=== PATIENT | female | born 1985 | race Caucasian/White ===

== ENCOUNTER → 2020-04-10 | Outpatient (CLI) | payer BC, OTHER ==
--- NOTE | 2020-04-10 12:47 | Diagnostic Imaging Report ---
INDICATION: survey. TECHNIQUE: Multiple real-time grayscale images were obtained over the gravid uterus. COMPARISON: None FINDINGS: There is a single live fetus in a cephalic presentation. heart rate was recorded 144 bpm. Placenta is posterior. Amniotic fluid volume appears normal. Cervical length is 3.8 cm. The kidneys, bladder and stomach are unremarkable. brain is unremarkable. There is a four-chamber heart. There is a three-vessel cord with normal insertion. spine is unremarkable. Biometrical measurements are as follows: Biparietal 4.93 cm, age 21 weeks 0 days. Head circumference 18.23 cm, age 20 weeks 5 days. Abdominal circumference 14.33 cm, age 19 weeks 5 days. Femur length 3.49 cm, age 21 weeks 1 days. Sonographic estimate age: 20 weeks 5 days. Sonographic estimated date of delivery: 08/23/2020. Estimated Weight: 348 gm (+/- 51 gm). LMP percentile: 26%. heart rate: 144 beats per minute. number: 1 of 1. IMPRESSION: Single live IUP 20 weeks 5 days gestational age. Estimated date of confinement sonographically is 08/23/2020. Dictated by: Dictated on workstation # [id number]
== END ==
LOC: RAD 10:00
PROVIDERS: ATTEND Obstetrics & Gynecology
DX: Z34.92 Encounter for supervision of normal pregnancy, unspecified, second trimester (principal); Z3A.20 20 weeks gestation of pregnancy
CPT/HCPCS: 76805

== ENCOUNTER 2020-08-27 02:24 | Inpatient (IN) | payer OTHER ==
[2020-08-27] VITALS (43 sets, daily range): BP systolic 99–140; BP diastolic 54–87
[~2020-08-27] VITALS: Ht 172.7 cm; Wt 81.1 kg
[2020-08-27] MEDS ORDERED: D5 LR IV SOLUTION 1,000 ML IV ONE (02:36)
[2020-08-27] MEDS ORDERED: LACTATED RINGERS 1,000 ML IV ONE ×2 (02:36→04:15)
[2020-08-27] MEDS ORDERED: D5 LR IV SOLUTION 1,000 ML IV SCH (03:00)
[2020-08-27] MEDS ORDERED: fentaNYL 2 mcg/ml BUPIVA 0.125 100 ML ONE (03:05)
[2020-08-27] MEDS ORDERED: ONDANSETRON 4 MG/2 ML (SDV) Z0FRAN ONE (03:05)
[2020-08-27] MEDS ORDERED: HYDROmorphone 2 MG/ML VIAL (DILAUDID) ONE (03:05)
[2020-08-27] MEDS ORDERED: HYDROmorphone 2 MG/ML VIAL (DILAUDID) IVP ONE (03:15)
[2020-08-27] MEDS ORDERED: ONDANSETRON 4 MG/2 ML (SDV) Z0FRAN IVP ONE ×2 (03:15→04:15)
[2020-08-27 03:33] LABS: BASOPHILS % (AUTO) 0 % (0-10); EOSINOPHILS % (AUTO) 0 % (0-10); HEMATOCRIT 43 % (35-52); HEMOGLOBIN 14.4 g/dL (11.5-16.0); LYMPHOCYTES # (AUTO) 2.2 10^3/uL (1.0-4.0); LYMPHOCYTES % (AUTO) 13 % (12-44); MEAN CORPUSCULAR HEMOGLOBIN 30 pg (25-34); MEAN CORPUSCULAR HGB CONC 34 g/dL (32-36); MEAN CORPUSCULAR VOLUME 90 fL (80-99); MEAN PLATELET VOLUME 12.7 fL (9.0-12.2); MONOCYTES # (AUTO) 1.1 10^3/uL (0.0-1.0); MONOCYTES % (AUTO) 6 % (0-12); NEUTROPHILS % (AUTO) 80 % (42-75); PLATELET COUNT 133 10^3/uL (130-400); WHITE BLOOD COUNT 17.4 10^3/uL (4.3-11.0)
[2020-08-27] MEDS ORDERED: SERT-414 PO (03:46)
[2020-08-27] MEDS ORDERED: DOXY1TAB6 PO (03:47)
[2020-08-27] MEDS ORDERED: fentaNYL INJ 100 MCG/2 ML AMP ONE (03:47)
[2020-08-27] MEDS ORDERED: PREN1TAB79 PO (03:47)
[2020-08-27] MEDS ORDERED: FERR-84 PO (03:47)
[2020-08-27] MEDS ORDERED: ONDANSETRON 4 MG/2 ML (SDV) Z0FRAN IV PRN (04:15)
[2020-08-27] MEDS ORDERED: diphenhydrAMINE 50 MG/ML INJ (BENADRYL) IV PRN (04:15)
[2020-08-27] MEDS ORDERED: METOCLOPRAMIDE INJ 10 MG/2 ML (REGLAN) IV PRN (04:15)
[2020-08-27] MEDS ORDERED: EPIDURAL (fentaNYL 2 MCG/ML BUPIVA 0.125%)100 ML BAG EPI PRN (04:15)
[2020-08-27] MEDS ORDERED: NALOXONE 0.4 MG/ML 1 ML (NARCAN) VIAL IV PRN ×2 (04:15)
[2020-08-27] MEDS ORDERED: BUPIVACAINE 0.25% 30 ML (SENSORCAINE) VIAL ONE (04:31)
[2020-08-27] MEDS ORDERED: CATHETER FLUSH 10 ML SYR IV SCH ×2 (06:00→14:00)
[2020-08-27] MEDS ORDERED: OXYTOCIN PRE-MIX DRIP 500 ML IV ONE (07:15)
[2020-08-27] MEDS ORDERED: LIDOCAINE/EPI 2% 1:200,00 (XYLOCAINE) 20 ML VIAL ONE (07:37)
[2020-08-27] MEDS: OXYTOCIN PRE-MIX DRIP 500 ML IV SCH ×2 (07:41→08:34)
[2020-08-27] MEDS ORDERED: DIBUCAINE 1% OINTMENT 30 GM TUBE TOP PRN (08:15)
[2020-08-27] MEDS ORDERED: MEASLES,MUMPS,RUBELLA 1 EA INJ SQ ONE (08:15)
[2020-08-27] MEDS ORDERED: WITCH HAZEL(TUCKS) 40 EA JAR TOP PRN (08:15)
[2020-08-27] MEDS ORDERED: BENZOCAINE/MENTHOL (DERMOPLAST) 56 ML CAN TP PRN (08:15)
[2020-08-27] MEDS ORDERED: TETANUS,DIPTH,PERTUSS P/F (BOOSTRIX) 0.5 ML VIAL IM ONE (08:15)
--- NOTE | 2020-08-27 08:15 | History & Physical-OB ---
OB - Chief Complaint & HPI Date/Time Date of Admission: Date of Admission: Aug 27, 2020 at 02:24 Date seen by a Provider: Aug 27, 2020 Time Seen by a Provider: 07:15 Chief Complaint/History OB-Reason for Admission/Chief: Onset of Labor Hx : 1 Hx Para: 0 Expected Date of Delivery: Aug 23, 2020 Gestational Age in Weeks: 40 Gestational Age in Days: 4 Admission Nurse Assessment Rev: Yes History of Labs O pos Antibody neg RI RPR NR HBsAg NR HIV NR GC neg GBS neg Allergies and Home Medications Allergies Coded Allergies: No Known Drug Allergies (Unverified , 08/27/20) Home Medications Doxylamine Succinate/Vit B6 1 Each Tab.ir.dr, 1 EACH PO DAILY, (Reported) Ferrous Sulfate 325 Mg Tablet, 325 MG PO DAILY, (Reported) Vit W-Ca,Fe,FA(<1 mg) 1 Each Tablet, 1 EACH PO DAILY, (Reported) Sertraline HCl 100 Mg Tablet, 100 MG PO DAILY, (Reported) Patient Home Medication List Home Medication List Reviewed: Yes OB - History Hx of Present Care: Yes Ultrasounds: Normal mid trimester US Obstetrical Complications: None Medical Complications: None Patient Past Medical History n/a Immunizations Date of Influenza Vaccine: Mar 29, 2020 OB - Admission Exam Physical Exam Vitals: Vital Signs 08/27/20 08/27/20 06:00 06:15 Temp 36.7 Pulse 65 Resp 18 B/P (MAP) 119/60 (79) Pulse Ox 99 O2 Delivery Room Air HEENT: NCAT Heart: Rhythm Normal Lungs: Clear Abdomen: Gravid Extremities: Normal Reflexes: Normal Cervical Dilatation: 4cm Effacement: 75% Station: -1 Membranes: Ruptured Amniotic Fluid: Clear Heart Rate: 130's Accelerations: Accelerations Present Decelerations: No Decelerations Short Term Variability: Present Intermediate Variability: Average (6-25) Contractions on Admission: < 5 Minutes Apart Intensity: Firm Labs Laboratory Tests Test 08/27/20 02:50 Range/Units White Blood Count 17.4 H 4.3-11.0 10^3/uL Red Blood Count 4.74 3.80-5.11 10^6/uL Hemoglobin 14.4 11.5-16.0 g/dL Hematocrit 43 35-52 % Mean Corpuscular Volume 90 80-99 fL Mean Corpuscular Hemoglobin 30 25-34 pg Mean Corpuscular Hemoglobin Concent 34 32-36 g/dL Red Cell Distribution Width 13.9 10.0-14.5 % Platelet Count 133 130-400 10^3/uL Mean Platelet Volume 12.7 H 9.0-12.2 fL Immature Granulocyte % (Auto) 1 % Neutrophils (%) (Auto) 80 H 42-75 % Lymphocytes (%) (Auto) 13 12-44 % Monocytes (%) (Auto) 6 0-12 % Eosinophils (%) (Auto) 0 0-10 % Basophils (%) (Auto) 0 0-10 % Neutrophils # (Auto) 14.0 H 1.8-7.8 10^3/uL Lymphocytes # (Auto) 2.2 1.0-4.0 10^3/uL Monocytes # (Auto) 1.1 H 0.0-1.0 10^3/uL Eosinophils # (Auto) 0.0 0.0-0.3 10^3/uL Basophils # (Auto) 0.0 0.0-0.1 10^3/uL Immature Granulocyte # (Auto) 0.1 0.0-0.1 10^3/uL OB - Assessment/Plan/Diagnosis Assessment Assessment: active labor Admission Dx 34 yo @ 40.4 Active labor, SROM Post dates GBS neg Admission Status: Inpatient Order (span 2 midnights) Reason for Inpatient Admission: Active labor at term Plan Plan: Expectant Management HARSHA VALDOVINOS DO Aug 27, 2020 08:15
--- NOTE | 2020-08-27 08:22 | OB Labor & Delivery Record ---
L&D History Date of Service Date of Service: Aug 27, 2020 History Expected Date of Delivery: Aug 23, 2020 Gestational Age in Weeks: 40 Hx : 1 Hx Para: 0 Complications Events: Routine care Operative Indications (Cesarea: N/A-Vaginal Delivery Intrapartal Events: Extnded Bradycardia Other Complications distress in second stage labor requiring operative vaginal delivery L&D Stage1 Stage One Onset of Labor - Date: Aug 27, 2020 Monitors and Tracing Monitor Mode: External Heart Rate: 150 Monitor Accelerations: Uniform Monitor Decelerations: Variable Station: 0 Quarter Inspector Variability: Average (6-10) Short Term Variability: Present Presentation: Vertex Vital Signs VS - Last 72 Hours, by Label 08/27/20 08/27/20 08/27/20 08/27/20 02:35 02:35 03:20 03:35 Temp 36.9 36.9 Pulse 75 75 75 68 Resp 18 18 18 18 B/P (MAP) 134/85 (101) 130/79 (96) 140/80 (100) Pulse Ox 98 O2 Delivery Room Air Room Air Room Air Room Air 08/27/20 08/27/20 08/27/20 08/27/20 03:50 03:55 04:05 04:08 Pulse 81 90 92 78 Resp 18 18 18 18 B/P (MAP) 126/70 (88) 135/62 (86) 121/87 (98) 120/71 (87) Pulse Ox 99 99 97 99 O2 Delivery Room Air Room Air Room Air Room Air 08/27/20 08/27/20 08/27/20 08/27/20 04:15 04:18 04:21 04:24 Pulse 81 70 75 82 Resp 18 18 18 18 B/P (MAP) 130/79 (96) 128/75 (92) 123/69 (87) 119/64 (82) Pulse Ox 99 96 96 96 O2 Delivery Room Air Room Air Room Air Room Air 08/27/20 08/27/20 08/27/20 08/27/20 04:27 04:30 04:33 04:40 Temp 36.4 Pulse 72 79 82 87 Resp 18 18 18 18 B/P (MAP) 118/61 (80) 119/58 (78) 115/59 (77) 113/74 (87) Pulse Ox 92 96 96 98 O2 Delivery Room Air Room Air Room Air Room Air 08/27/20 08/27/20 08/27/20 08/27/20 04:45 04:50 04:55 05:30 Pulse 87 87 90 92 Resp 18 18 18 18 B/P (MAP) 115/72 (86) 115/68 (84) 120/73 (89) 113/55 (74) Pulse Ox 98 99 100 100 O2 Delivery Room Air Room Air Room Air Room Air 08/27/20 08/27/20 08/27/20 05:45 06:00 06:15 Temp 36.7 Pulse 92 86 65 Resp 18 18 18 B/P (MAP) 107/58 (74) 104/56 (72) 119/60 (79) Pulse Ox 98 99 O2 Delivery Room Air Room Air Room Air Rupture of Membranes Spontaneous Ruture of Membrane: Yes Amniotic Membrane Rupture Time: 0115 Amniotic Membrane Fluid Desc.: Clear Vaginal Bleeding Description: Normal Show Induction/Anesthesia Epidural Cath Placement - Time: 0405 Progress/Notes Patient presented in active labor, she was 4 cm at admission, and SROM occured at 0115. She received an epidural shortly after admission, and progressed to complete and +2 station without any augmentation when I was called for delivery at 0715. L&D Stage2 Stage Two Stage II Date: Aug 27, 2020 Monitors and Tracing Monitor Mode: External Heart Rate: 150 Monitor Accelerations: None Monitor Decelerations: Prolonged (to the 50s-60s) Quarter Inspector Variability: Average (6-10) Short Term Variability: Present Position: Right Occiput Anterior Presentation: Vertex Signs of Distress by FHT Signs of Distress Due to need to expedite delivery due to distress, (prolonged bradycardia) vacuum extraction was discussed with patient and . Kiwi vacuum applied to flexion point on presenting part. With next contraction, suction applied to 50 mmHg, and with maternal push and gentle extension of the head, the infants head was delivered over RML. Tight nuchal was noted, and maternal push delivered infant through the nuchal cord before it could be reduced. No cord avulsion occured. Cord Descript/Complications Cord Vessel Description: 3 Vessels Delivery Type Infant Delivery Method: Low Vacuum Extraction Anterior Shoulder: Left Episiotomy/Perineal Laceration Laceraction(s)/Extensions: Yes Episiotomy Description: Right Mediolateral Degree (describe repair) RML repaired using 3-0 and 2-0 vicryl suture in usual fashion. Condition of Delivery 1 minute Comment: 8 5 minute Comment: 9 Notes Live female infant weight 7lbs 10 oz Condition of Infant Condition of Infant: Living Exam: No Observed Abnormalities Resuscitation Resuscitation: N/A - Spontaneous Resp L&D Stage3 Stage Three Stage III Date: Aug 27, 2020 Pictocin Pitocin Administration Comment: 30 mu wide open after delivery of placenta Placenta Delivery Placenta Delivery: Spontaneous Delivery Summary Summary Estimated blood loss (mL): 350 Attending at delivery: Harsha Valdovinos DO Condition of Delivery Examined: Cervix Examined, Uterus Explored Post Hemorrhage: No Condition of Mother stable Condition of Infant (s) stable HARSHA VALDOVINOS DO Aug 27, 2020 08:22
[2020-08-27] MEDS: IBUPROFEN 600 MG (MOTRIN) TAB PO SCH ×2 (11:25→17:56)
[2020-08-27] MEDS ORDERED: ACETAMINOPHEN 500 MG TAB (TYLENOL) PO PRN (14:15)
[2020-08-27] MEDS ORDERED: ACETAMINOPHEN 500 MG TAB (TYLENOL) ONE (14:16)
[2020-08-27] MEDS: DOCUSATE SODIUM 100 MG (COLACE) CAP PO SCH ×2 (14:24→20:45)
[2020-08-27] MEDS: FERROUS SULF 325 MG (IRON) TAB PO SCH (14:24)
--- NOTE | 2020-08-27 14:26 | Anesthesia-Regional Post-Op ---
Regional Patient Condition Mental Status: Alert, Oriented x3 Circulation: Same as Pre-Op Headache: Absent Sensation: Full Recovery Motor Block: Absent Post Op Complications Complications None Follow Up Care/Instructions Patient Instructions None needed. Anesthesia/Patient Condition Patient is doing well, no complaints, stable vital signs, no apparent adverse anesthesia problems. SILVESTRE INFANTE DO Aug 27, 2020 14:26
[2020-08-27] MEDS: HYDROcodone/APAP 5 MG/325 MG (LORTAB) TAB PO PRN (20:51)
--- NOTE | 2020-08-27 22:11 | Discharge Inst-Women's Service ---
Discharge Inst-Women's Serv Depart Medication/Instructions New, Converted or Re-Newed RX: RX on Chart Final Diagnosis PPD 1 VAVD Problems Reviewed?: Yes Consults/Follow Up Additional Follow Up: Yes Orders/Referrals Dr. Valdovinos in 6 weeks Activity Activity: Activity as Tolerated Driving Instructions: No Driving for 1 Week NO SMOKING: NO SMOKING Nothing Inside Vagina: No Douching, No [place], No Tampons Diet Discharge Diet: No Restrictions Symptoms to Report to : Bleeding Excessive, Pain Increased, Fever Over 101 Degrees F, Vaginal Bleeding Increase, Questions/Concerns For Any Problems or Questions: Contact Your Physician HARSHA VALDOVINOS DO Aug 27, 2020 22:11
[2020-08-27] MEDS ORDERED: BENZ78AE5 TP (22:13)
[2020-08-27] MEDS ORDERED: DIBU30OI TOP (22:13)
[2020-08-27] MEDS ORDERED: DCS100C PO (22:13)
[2020-08-27] MEDS ORDERED: IBUP-844 PO (22:13)
[2020-08-27] MEDS ORDERED: ACHD5005 PO (22:13)
[2020-08-28 00:58] VITALS: BP 106/57
[2020-08-28] MEDS: IBUPROFEN 600 MG (MOTRIN) TAB PO SCH ×2 (00:58→07:33)
[2020-08-28] MEDS: HYDROcodone/APAP 5 MG/325 MG (LORTAB) TAB PO PRN ×3 (01:00→13:47)
[2020-08-28 04:20] VITALS: BP 101/72
[2020-08-28 06:41] LABS: BASOPHILS % (AUTO) 0 % (0-10); EOSINOPHILS # (AUTO) 0.1 10^3/uL (0.0-0.3); EOSINOPHILS % (AUTO) 0 % (0-10); HEMATOCRIT 34 % (35-52); HEMOGLOBIN 11.3 g/dL (11.5-16.0); LYMPHOCYTES # (AUTO) 1.9 10^3/uL (1.0-4.0); LYMPHOCYTES % (AUTO) 13 % (12-44); MEAN CORPUSCULAR HEMOGLOBIN 31 pg (25-34); MEAN CORPUSCULAR HGB CONC 33 g/dL (32-36); MEAN CORPUSCULAR VOLUME 94 fL (80-99); MEAN PLATELET VOLUME 12.5 fL (9.0-12.2); MONOCYTES # (AUTO) 0.9 10^3/uL (0.0-1.0); MONOCYTES % (AUTO) 6 % (0-12); NEUTROPHILS # (AUTO) 11.1 10^3/uL (1.8-7.8); NEUTROPHILS % (AUTO) 80 % (42-75); PLATELET COUNT 114 10^3/uL (130-400)
[2020-08-28] MEDS ORDERED: PRENATAL VITAMIN 1 EA TAB PO SCH (07:00)
--- NOTE | 2020-08-28 08:30 | Postpartum Progress Note ---
Note Note Day # 1 Subjective: Patient is without complaints. Ambulating, voiding. Tolerating a regular diet without nausea or vomiting. Normal lochia. Pain is well controlled with oral pain medications. Objective: Physical Exam: General - Alert and oriented, no apparent distress Abdomen - Soft, appropriately tender to palpation, non-distended, fundus firm at umbilicus Extremities - no edema, negative Kobi's bilaterally Assessment: PPD 1 VAVD Plan: Routine care. Encourage breast feeding. Encourage ambulation. Ferrous sulfate supplementation. Plan for discharge today Vitals - Labs Vital Signs - I&O Vital Signs Date Time Temp Pulse Resp B/P (MAP) Pulse Ox O2 Delivery O2 Flow Rate FiO2 08/28/20 04:20 36.2 71 18 101/72 (82) 99 Room Air 08/28/20 00:58 36.1 71 18 106/57 (73) 98 Room Air 08/27/20 20:45 36.8 70 18 100/60 (73) 99 Room Air 08/27/20 17:54 36.2 73 18 103/56 (72) Room Air 08/27/20 14:30 36.7 85 18 99/54 (69) 96 Room Air 08/27/20 11:10 77 18 103/54 (70) Room Air 08/27/20 10:55 75 18 104/59 (74) Room Air 08/27/20 10:40 113 18 117/69 (85) Room Air 08/27/20 10:25 80 18 108/58 (75) Room Air 08/27/20 10:10 88 18 105/57 (73) Room Air 08/27/20 09:50 92 18 106/56 (73) Room Air 08/27/20 09:40 85 18 111/68 (82) Room Air 08/27/20 09:25 84 18 104/80 (88) Room Air 08/27/20 09:00 96 18 116/62 (80) Room Air 08/27/20 08:30 37.3 106 18 123/63 (83) Room Air I & O 08/28/20 07:00 Intake Total 2000 ml Balance 2000 ml Labs Laboratory Tests 08/28/20 06:25: White Blood Count 14.0H, Red Blood Count 3.64L, Hemoglobin 11.3#L, Hematocrit 34L, Mean Corpuscular Volume 94, Mean Corpuscular Hemoglobin 31, Mean Corpuscular Hemoglobin Concent 33, Red Cell Distribution Width 14.5, Platelet Count 114L, Mean Platelet Volume 12.5H, Immature Granulocyte % (Auto) 1, Neutrophils (%) (Auto) 80H, Lymphocytes (%) (Auto) 13, Monocytes (%) (Auto) 6, Eosinophils (%) (Auto) 0, Basophils (%) (Auto) 0, Neutrophils # (Auto) 11.1H, Lymphocytes # (Auto) 1.9, Monocytes # (Auto) 0.9, Eosinophils # (Auto) 0.1, Basophils # (Auto) 0.0, Immature Granulocyte # (Auto) 0.1 HARSHA VALDOVINOS DO Aug 28, 2020 08:30
[2020-08-28] MEDS: DOCUSATE SODIUM 100 MG (COLACE) CAP PO SCH (08:42)
[2020-08-28] MEDS: FERROUS SULF 325 MG (IRON) TAB PO SCH (08:42)
[2020-08-28 08:47] VITALS: BP 104/75
== END 2020-08-28 14:40 | disposition home or self-care (01) | DRG 807 ==
LOC: LDRP 02:24
PROVIDERS: ADMIT Obstetrics & Gynecology; ATTEND Obstetrics & Gynecology
PROC: 10D07Z6 Extraction of Products of Conception, Vacuum, Via Natural or Artificial Opening (ICD-10-PCS; principal; 2020-08-27)
PROC: 0W8NXZZ Division of Female Perineum, External Approach (ICD-10-PCS; 2020-08-27)
DX: O48.0 Post-term pregnancy (principal); Z37.0 Single live birth; O76 Abnormality in fetal heart rate and rhythm complicating labor and delivery; Z3A.40 40 weeks gestation of pregnancy
CPT/HCPCS: 36415; 85025; 86850; 86900; 86901; 99212